=== PATIENT | female | born 1990 | race Caucasian/White ===

== ENCOUNTER 2023-03-26 19:20 | Emergency (ER) | payer SELFPAY ==
[~2023-03-26] VITALS: Ht 160 cm; Wt 49.9 kg
[2023-03-26 19:29] VITALS: BP 126/91; PULSE 97; RESP 16; TEMP 97.4; O2SAT 98
== END 2023-03-26 22:24 | disposition left against medical advice (07) ==
LOC: MED 19:20
DX: R53.1 Weakness (principal); Z53.21 Procedure and treatment not carried out due to patient leaving prior to being seen by health care provider
CPT/HCPCS: 99281